=== PATIENT | male | born 1965 | race Caucasian/White ===

== ENCOUNTER → 2018-11-22 | Outpatient (CLI) | payer OTHER | LOC: MRI 11:53 | DX: M23.322 Other meniscus derangements, posterior horn of medial meniscus, left knee (principal) ==

== ENCOUNTER → 2020-12-11 | Outpatient (CLI) | payer OTHER | LOC: MRI 12-08 09:09 | PROVIDERS: ATTEND Orthopaedic Surgery Sports Medicine | DX: S83.232A Complex tear of medial meniscus, current injury, left knee, initial encounter (principal); M23.004 Cystic meniscus, unspecified medial meniscus, left knee; X58.XXXA Exposure to other specified factors, initial encounter; Y93.89 Activity, other specified; Y92.89 Other specified places as the place of occurrence of the external cause; Y99.8 Other external cause status ==